=== PATIENT | female | born 1965 | race Two or more races ===

== ENCOUNTER → 2024-10-27 | Outpatient (CLI) | payer MEDICAID, SELFPAY ==
--- NOTE | 2024-10-27 10:15 | XR_ITS ---
Examination: Abdomen sonogram, complete Date and time of exam: October 27, 2024 1017 hours INDICATIONS: Heartburn acid reflux beginning one year ago. Technique: Multiple real-time grayscale transabdominal sonographic images of the abdomen have been obtained. Findings: Multiple gallstones Gallbladder wall 0.3 cm no edema Common bile duct 0.3 cm Pancreatic head 2.6 cm Aorta not enlarged Liver 19.7 cm fatty infiltration no focal liver lesions Normal hepatopedal portal venous flow Patent IVC Right kidney 12.6 x 4.8 x 5.2 cm cortex 1.8 cm Left kidney 12.5 x 4.3 x 5.1 cm cortex 2.0 cm Mild bilateral renal parenchymal scar formation. Midpole echogenic mass left kidney which may represent an angiomyolipoma, 11 x 12 x 12 mm Splenomegaly 13.3 cm IMPRESSION: Cholelithiasis, negative for cholecystitis Moderate hepatomegaly fatty liver Recommend CT scan abdomen kidneys follow-up pre and postcontrast to confirm 11 x 12 x 12 mm angiomyolipoma left kidney
== END | disposition home or self-care (01) ==
PROVIDERS: PCP Physician Assistant; Referring Provider Internal Medicine Gastroenterology; Visit Provider Internal Medicine Gastroenterology
DX: K80.20 Calculus of gallbladder without cholecystitis without obstruction (principal); K76.0 Fatty (change of) liver, not elsewhere classified; D17.71 Benign lipomatous neoplasm of kidney
CPT/HCPCS: 76700

== ENCOUNTER → 2025-01-22 | Outpatient (CLI) | payer MEDICAID, SELFPAY ==
--- NOTE | 2025-01-22 15:30 | XR_ITS ---
Examination: Breast ultrasound, unilateral, right complete Date and time of exam: January 22, 2025 1532 hrs. Indications: Personal history right breast cancer lumpectomy 11 years ago, right breast sonogram July 11, 2024 2:00 nodule 6 x 5 mm Technique: Real-time smith scale ultrasonographic imaging performed right breast including all 4 quadrants as well as nipple retroareolar and axillary region. Findings: 1:00 nodule circumscribed 7 x 8 mm Retroareolar nodule versus scar tissue 13 x 13 mm Impression: BI-RADS Category 3: Probably benign findings One additional 6 month right breast sonogram follow-up is needed to document stability of nodules described above, particularly nodule versus scar tissue in the retroareolar region right breast, 13 x 13 x 13 mm
== END | disposition home or self-care (01) ==
LOC: CDIM 15:15
PROVIDERS: PCP Nurse Practitioner Family; Referring Provider Nurse Practitioner Family; Visit Provider Nurse Practitioner Family
DX: R92.8 Other abnormal and inconclusive findings on diagnostic imaging of breast (principal); Z85.3 Personal history of malignant neoplasm of breast
CPT/HCPCS: 76641

== ENCOUNTER → 2025-02-01 | Outpatient (CLI) | payer MEDICAID, SELFPAY ==
--- NOTE | 2025-02-01 15:30 | XR_ITS ---
Examination: Ultrasound soft tissue extremity right foot TECHNIQUE: Grayscale sonographic images soft tissue right foot Exam date and time: February 01, 2025 1451 hours INDICATIONS: Palpable lump anterior medial right foot note is beginning 2 months ago FINDINGS: Cystlike area at the area concern medial foot 4 x 2 x 6 mm IMPRESSION: Small cyst in the soft tissue at the area concern 4 x 2 x 6 mm
== END | disposition home or self-care (01) ==
PROVIDERS: PCP Physician Assistant; Referring Provider Physician Assistant Medical; Visit Provider Physician Assistant Medical
DX: L72.9 Follicular cyst of the skin and subcutaneous tissue, unspecified (principal)
CPT/HCPCS: 76882

== ENCOUNTER → 2025-02-01 | Outpatient (CLI) | payer MEDICAID, SELFPAY ==
--- NOTE | 2025-02-01 14:00 | ECHO_ITS ---
Transthoracic Echo Report Ht (in): 64 Wt (lb): 149 Exam Location: Portable Status: Preadmit Scale Adjuster: SHELLY Sierra^^^^ Indications: Procedure Performed: BP: / HR: Rhythm: Sinus Technical Quality: Good MEASUREMENTS (Male / Female) Normal Values 2D ECHO LV Diastolic Diameter PLAX 4.3 cm 4.2 - 5.9 / 3.9 - 5.3 cm LV Systolic Diameter PLAX 2.8 cm IVS Diastolic Thickness 0.9 cm 0.6 - 1.0 / 0.6 - 0.9 cm LVPW Diastolic Thickness 1.1 cm 0.6 - 1.0 / 0.6 - 0.9 cm LV Relative Wall Thickness 0.5 LVOT Diameter 1.5 cm Aortic Root Diameter 2.8 cm LA Systolic Diameter LX 4.0 cm 3.0 - 4.0 / 2.7 - 3.8 cm LA Volume Index 43.3 cm?/m? 16 - 28 cm?/m? Ascending Aorta Diameter 2.9 cm DOPPLER AV Peak Velocity 183.5 cm/s AV Peak Gradient 13.5 mmHg AV Mean Gradient 7.0 mmHg AV Velocity Time Integral 42.6 cm LVOT Peak Velocity 125.0 cm/s LVOT Peak Gradient 6.3 mmHg LVOT Velocity Time Integral 27.0 cm AV Area Cont Eq vti 1.1 cm? AV Area Cont Eq pk 1.2 cm? MV Peak Velocity 109.0 cm/s MV Peak Gradient 4.8 mmHg MV Mean Velocity 78.3 cm/s MV Mean Gradient 3.0 mmHg MV Area PHT 4.6 cm? Mitral E Point Velocity 87.3 cm/s Mitral A Point Velocity 108.0 cm/s Mitral E to A Ratio 0.8 LV E' Lateral Velocity 8.4 cm/s Mitral E to LV E' Lateral Ratio 10.4 LV E' Septal Velocity 8.6 cm/s Mitral E to LV E' Septal Ratio 10.2 TR Peak Velocity 258.0 cm/s TR Peak Gradient 26.6 mmHg PV Peak Velocity 108.0 cm/s PV Peak Gradient 4.7 mmHg RVOT Peak Velocity 68.0 cm/s FINDINGS Left Ventricle Normal left ventricular size, wall thickness, systolic function with no obvious regional wall motion abnormalities. There is grade I diastolic dysfunction of the left ventricle (impaired relaxation pattern). The left ventricular ejection fraction is normal, estimated at 60-65%. Right Ventricle The right ventricle is normal in size and systolic function. The estimated right ventricular systolic pressure, 31 mmHg. Left Atrium Mildly increased left atrial volume 43.3 mL/m?. Right Atrium The right atrium is normal by two-dimensional imaging, color flow and Doppler imaging with no structural abnormalities, no thrombus formation present. Atrial Septum The interatrial septum appears normal with no evidence of a shunt. Aorta The aorta is normal by two-dimensional, color flow and Doppler interrogation. Mitral Valve Mild mitral regurgitation. Mild mitral annular calcification. Aortic Valve Aortic valve sclerosis. Tricuspid Valve There is mild tricuspid valve regurgitation. Pulmonic Valve Trivial pulmonic valve regurgitation. Vessels The pulmonary artery appears normal. The inferior vena cava pulmonary and hepatic veins appear normal. Pericardium The pericardium is normal by two-dimensional imaging. There is no significant pericardial effusion. CONCLUSIONS indication: cancer center The transthoracic study is normal by two-dimensional, color flow imaging and Doppler interrogation. Normal left ventricular size and function. Approximate ejection fraction is 65%. Trace mitral and trace tricuspid regurgitation Madison Velez (Electronically Signed) Final Date: 02 Feb 2025 06:38
== END | disposition home or self-care (01) ==
LOC: SDIM 02-02 08:17
PROVIDERS: PCP Physician Assistant Medical; Referring Provider Physician Assistant Medical; Visit Provider Physician Assistant Medical
DX: I08.1 Rheumatic disorders of both mitral and tricuspid valves (principal)
CPT/HCPCS: 93306

== ENCOUNTER 2025-02-19 10:32 | Outpatient (RCR) | payer MEDICAID, SELFPAY ==
--- NOTE | 2025-02-22 14:17 | CTCFLWUP_ITS ---
Patient: PAOLA DUNN : 1965 Page 2 of 2 FOLLOW UP NOTE DATE OF SERVICE: 02/19/2025 NAME: PAOLA DUNN ACCOUNT: [id number] : 1965 AGE: 59 INTERVAL HISTORY: Chief Complaint Follow-up for abnormal ultrasound, high white cell count, anemia History of Present Illness Shaun dejesus presents for follow-up of abnormal ultrasound findings and ongoing anemia. The patient reports taking iron sulfate tablets for anemia as prescribed by their primary care doctor. They experienced a cough about a month or two ago, which resolved after treatment. The patient denies any current infection, recent weight loss, appetite changes, night sweats, or shortness of breath. The patient is currently taking alendronate in the morning, 30 minutes before breakfast. They are scheduled for another endoscopy. The patient has a history of atypical lobular hyperplasia and has undergone extensive anti-endocrine therapy. Medications and Supplements - Iron sulfate tablets - Prescribed by primary care doctor for anemia - Alendronate - Taken in the morning, 30 minutes before breakfast - Can cause gastritis - Herbal or [place] products - Blood pressure medication - Diabetes medication Review of Systems General: Negative for night sweats, weight loss. Respiratory: Positive for cough (resolved after treatment 1-2 months ago). Negative for shortness of breath. ONCOLOGY HISTORY: DIAGNOSIS: History of atypical lobular hyperplasia, atypical ductal hyperplasia of right breast (09/22/2013). Took antihormonal therapy for a total of 8 years stopped on 02/03/2022. Osteopenia DXA 12/01/2023 On Fosamax 70 mg weekly Citracal discontinued by PCP History of iron deficiency anemia, s/p Venofer (12/25/2020) DATE OF DIAGNOSIS: 09/12/2013 STAGE/TNM: Stage 0-no cancer diagnosis- atypical ductal hyperplasia of right breast TREATMENT HISTORY: Care?Plan Start?Date Cycle Day Intent VENOfer?200mg?IV?wkly 08/21/2020 1 70 Palliative Patient received NT endocrine therapy for 8 years stopped in 02/03/2022 HISTORY OF PRESENT ILLNESS: PREVIOUS NOTE: Maryanne Dunn is a 59-year-old Slovak-speaking postmenopausal female with history of right breast mass excision on September 22, 2013. Surgical pathology specimen showed features suggestive of atypical lobular hyperplasia, atypical ductal hyperplasia. 02/07/2014?03/27/2014: She received adjuvant radiation therapy to the right breast After completing the radiation therapy patient started taking tamoxifen which was changed to anastrozole about 3 years ago. 09/08/2018: She complains of new onset pain in the left knee joint that is been bothering her for last 3 weeks. She is having trouble flexing the left knee joint and having trouble putting weight on the left knee. Recently she had mammograms which came back negative. LFTs were normal. 11/07/2018: MRI of the left knee?showed a large horizontal linear tear body and posterior horn medial meniscus as well as subtle heterogeneous enhancement throughout all osseous structures with focal sparing of enhancement in the distal lateral femoral condylar region measuring 30 mm. Radiologist is recommending CT scan of the knee to exclude any lytic lesions in the lateral femoral condylar region. Patient continues to have pain in the left knee. She denies any cough chest pain abdominal pain or leg cramps. 11/24/2018: Patient is in the clinic today for follow-up. She is talking to her primary care doctor regarding possible referral to orthopedic surgeon. She is scheduled to have CT scan of her left knee on December 06, 2018. She is otherwise doing well at this time. She denies any new complaints. 12/06/2018: Patient had CT scan of left knee without contrast which showed focal radiolucent areas in the intercondylar region of left distal femur 20 x 22 mm as well as 2 lesions in the lateral femoral condylar region measuring 17 x 8, 8 x 6 mm. Radiologist is favoring focal osteopenia as most likely possibility and recommending left knee x-rays in about 3 months. 03/20/2019: X-ray of the left knee did not show any findings diagnostic for metastatic disease to the bone. 04/26/2019: Ultrasound of the abdomen?cholelithiasis and mild hepatomegaly. 05/17/2019: Bilateral screening mammograms?BI-RADS Category 2: Benign findings. 05/30/2019: Bone density test?There is osteopenia based on lumbar spine measurements. There is osteopenia based on hip measurements 06/26/2020: Hemoglobin 10.2, MCV 91, WBC 7.4, platelets 260,000, creatinine 0.54. 10/10/2020: Bilateral breast MRI with gadolinium? 08/12/2021: Bone density test? 02/03/2022: Advised patient to stop taking anastrozole. 10/12/2022: Bilateral mammogram screening 11/09/2022: Diagnostic mammogram right breast 11/09/2022: Breast ultrasound complete bilateral 05/04/2023: Bilateral breast ultrasound complete 05/04/2023: Right breast unilateral diagnostic mammogram 08/04/2023: Hemoglobin 11.0, MCV 90, platelets 291,000, ANC 6.0, WBC 9.5 06/08/2023: EGD, negative for malignancy 11/09/2023: Colonoscopy screening, hemorrhoids, repeat in 10 years 12/01/2023: DEXA 12/10/2023: Right breast ultrasound Findings: 1:00 oval mass circumscribed 8 x 3 x 6 mm Impression: BI-RADS Category 2: Benign findings 12/10/2023 : Right breast diagnostic mammogram Findings: There are scattered areas of fibroglandular density. 10 mm focal asymmetry lower right breast on MLO view appears stable and benign. Otherwise, no evidence of abnormal masses or suspicious calcifications. Stable postbiopsy marker clip. Impression: BI-RADS category 2: Benign findings Recommend 1 year follow-up mammogram 04/03/2024: Bilateral mammogram screening 05/25/2024: Hemoglobin 10.4, MCV 96, ANC 5.7, WBC 8.8, platelets 291,000 07/11/2024: Hemoglobin 11.1, MCV 93, ANC 5.3, WBC 8.4, platelets 286,000 07/11/2024: Right diagnostic mammogram-benign findings. 07/11/2024: Right breast ultrasound-2:00 oval mass circumcised 6 x 5 mm, probably benign findings, 1 additional 6-month right breast ultrasound to document stability of nodule. OTHER MEDICAL HISTORY/CONDITIONS: FAMILY HISTORY: SOCIAL HISTORY: [employer] HISTORY: MEDICATIONS: 1. alendronate - 70 mg 1 tab Weekly Medications Last Reconciled by Rashida Liriano MA on 02/19/2025 ALLERGIES: No Known Drug Allergies REVIEW OF SYSTEMS: A complete 14-point review of systems was performed and is negative except as noted in interval history. PHYSICAL EXAMINATION: VITAL SIGNS: PAIN: 0 - No pain ECOG Performance Status: 0 - Asymptomatic and fully active GENERAL APPEARANCE: Appears well, in no apparent distress, appropriately interactive. HEENT: Normocephalic, no temporal wasting, normal conjunctiva, no scleral icterus, normal hearing, lips without lesions, neck normal range of motion. CARDIOVASCULAR: Not assessed. PULMONARY: Normal respiratory effort, no respiratory distress or use of accessory muscles, speaking in full sentences, no tachypnea. EXTREMITIES: No pedal edema or cyanosis. SKIN: Normal skin appearance. NEUROLOGIC: Alert and oriented x4. PSHYCHIATRIC: Appropriate affect, mood normal, behavior normal, intact thought and speech. LABORATORY DATA: I have personally reviewed and interpreted each of the patient?s relevant lab tests, abnormal findings are below: Date 01/27/16 08/21/20 ??WHITE?BLOOD?COUNT?(Thou/mm3) 8.7 9.7 ??RED?BLOOD?COUNT?(Miln/mm3) 3.28?L 3.72?L ??HEMOGLOBIN?(gm/dl) 10.2?L 11.3?L ??HEMATOCRIT?(%) 29.6?L 31.6?L ??PLATELET?COUNT?(Thou/mm3) 261 294 ??NEUTROPHILS?%,?AUTO?(%) 63 71 ??LYMPH?%,?AUTO?(%) 27 22 ??NEUTROPHILS,?AUTO?(Thou/mm3) 5.5 6.9 ??GLUCOSE,RANDOM?(mg/dL) 110?H ? ??BLOOD?UREA?NITROGEN?(mg/dL) 13 ? ??CREATININE?(mg/dL) 0.70 ? ??SODIUM?(mmol/L) 143 ? ??POTASSIUM?(mmol/L) 3.5 ? ??CHLORIDE?(mmol/L) 105 ? ??CrCl?(CandG)?(ml/min) 112.91 ? ??AST/SGOT?(Unit/L) 15 ? ??ALT/SGPT?(Unit/L) 24 ? ??ALKALINE?PHOSPHATASE?(Unit/L) 56 ? ??BILIRUBIN,?TOTAL?(mg/dL) 0.9 ? ??PROTEIN?TOTAL?(gm/dl) 6.7 ? ??ALBUMIN,?SERUM?(gm/dl) 3.5 ? ??GLOBULIN?(gm/dl) 3.2 ? ??ALBUMIN/GLOBULIN?RATIO 1.1?L ? ??CALCIUM,?SERUM?(mg/dL) 8.1?L ? ??CALCIUM?SERUM?(CORRECTED)?(mg/dL) 8.5 ? ??TOTAL?IRON?BINDING?CAP?(S*)?(mcg/dL) ? 282 ??UNBOUND?IBC?(mcg/dL) ? 220?L Laboratory, Imaging, and Diagnostic Test Results - Date: Not specified - WBC: Elevated (specific value not provided) - Hemoglobin: Low, indicating anemia (specific value not provided) - Ferritin: 591 (units not specified, high) - Liver enzymes: Slightly elevated (specific values not provided) - Ultrasound (January, year not specified): Showed scar tissue in breast, radiologist recommends repeat - Previous results: - EGD: Performed previously (date not specified), results not provided ASSESSMENT/PLAN: Shaun dejesus presents with abnormal ultrasound findings, elevated white blood cell count, persistent anemia, and slightly elevated liver enzymes. Abnormal breast ultrasound Assessment: Recent ultrasound from January revealed scar tissue in the breast. Patient has a history of atypical lobular hyperplasia and has undergone extensive anti-endocrine therapy. The radiologist has recommended a repeat ultrasound. Plan: - Schedule mammogram for July Leukocytosis and anemia Assessment: Patient presents with elevated white blood cell count and persistent anemia. Iron supplementation has been ongoing as prescribed by the primary care physician. Recent ferritin level is significantly elevated at 591, suggesting anemia is not due to iron deficiency. Patient reports a cough about a month or two ago that resolved with treatment. No recent weight loss, appetite changes, night sweats, or shortness of breath reported. Considering the possibility of an underlying infection or other etiologies for the hematologic abnormalities. Plan: - Discontinue iron sulfate tablets immediately - Order blood work for - Investigate cause of anemia - Consider testing for valley fever Elevated liver enzymes Assessment: Patient's liver enzymes are slightly elevated. High ferritin levels (591) may be contributing to potential liver damage. Further investigation is warranted to determine the underlying cause. Plan: - Order MRI of the liver - Check for hepatitis and other liver conditions - Discontinue all supplements, including herbal and [place] products - Continue only essential medications (e.g., for blood pressure or diabetes) Potential medication-induced gastritis Assessment: Patient is currently taking alendronate in the morning, 30 minutes before breakfast. This medication regimen may be contributing to gastritis. Patient is scheduled for another endoscopy. Plan: - Discontinue alendronate until further notice - Await results of scheduled endoscopy - will start on [place] after dental clearance ORDERS: Order # Description [id number] Comprehensive Metabolic Panel - 12 + CBC with Auto Diff + Hep A, B and C panel [id number] Ferritin + Iron Panel + Reticulocyte Count + Sedimentation Rate + Vitamin B-12 + Folic Acid; Serum [id number] Assay Of Haptoglobin Quant [id number] Lactate Dehydrogenase (LDH) [id number] Serum Immunofixation Electrophoresis + Serum Protein Electrophoresis + Beta-2 Microglobulin + Quant Immunoglobulins + Free kappa and lambda light chains plus ratio, quantitative + Urine Protien Electrophoresis + Urine Immunification Electrophoresis + Serum Viscocity + Hemoglobin Electrophoresis [id number] Antibody; Coccidioides Immitis + HIV-1/HIV-2 Single Assay [id number] QuantiFERON-TB Gold Plus (angelcam TEST:[id number] CPT: 77834) [id number] Erythropoieten Level [id number] MD Follow Up 3 Week [id number] RETURN TO CLINIC: BILLING AND COMPLIANCE: I reviewed external records from providers outside my specialty as summarized above. I spent a total of 50 minutes on this patient?s care on the day of their visit excluding time spent related to any billed procedures. This time includes time spent with the patient as well as time spent documenting in the medical record, reviewing patients records and tests, obtaining history, placing orders, communicating with other healthcare professionals, counseling the patient, family or caregiver, and/or care coordination for the diagnoses above. Electronically Signed by: Luigi Lang MD T: 11:35 AM CC: CALOS Anand PCP: Luigi Lang Referring: Luigi Lang This document was completed utilizing speech recognition software. Grammatical errors, random word insertions, pronoun errors, and incomplete sentences are an occasional consequence of this system due to software limitations, ambient noise, and hardware issues. Any formal questions or concerns about the content, text or information contained within the body of this dictation should be directly addressed to the provider for clarification.
== END 2025-03-03 23:59 | disposition home or self-care (01) ==
LOC: SCTC 10:32
PROVIDERS: PCP Physician Assistant; Referring Provider Internal Medicine Hematology & Oncology; Visit Provider Internal Medicine Hematology & Oncology
DX: D64.9 Anemia, unspecified (principal); R92.8 Other abnormal and inconclusive findings on diagnostic imaging of breast; D72.829 Elevated white blood cell count, unspecified; R74.8 Abnormal levels of other serum enzymes
CPT/HCPCS: 99213; G0463

== ENCOUNTER 2025-04-23 13:52 | Outpatient (RCR) | payer MEDICAID, SELFPAY ==
--- NOTE | 2025-04-23 16:10 | CTCFLWUP_ITS ---
Patient: PAOLA DUNN : 1965 Page 2 of 2 FOLLOW UP NOTE DATE OF SERVICE: 04/23/2025 NAME: PAOLA DUNN ACCOUNT: [id number] : 1965 AGE: 60 INTERVAL HISTORY: Chief Complaint Follow-up for abnormal ultrasound, high white cell count, anemia History of Present Illness Shaun dejesus presents for follow-up of abnormal ultrasound findings and ongoing anemia. The patient reports taking iron sulfate tablets for anemia as prescribed by their primary care doctor. They experienced a cough about a month or two ago, which resolved after treatment. The patient denies any current infection, recent weight loss, appetite changes, night sweats, or shortness of breath. The patient is currently taking alendronate in the morning, 30 minutes before breakfast. They are scheduled for another endoscopy. The patient has a history of atypical lobular hyperplasia and has undergone extensive anti-endocrine therapy. Medications and Supplements - Iron sulfate tablets - Prescribed by primary care doctor for anemia - Alendronate - Taken in the morning, 30 minutes before breakfast - Can cause gastritis - Herbal or Israeli products - Blood pressure medication - Diabetes medication Review of Systems General: Negative for night sweats, weight loss. Respiratory: Positive for cough (resolved after treatment 1-2 months ago). Negative for shortness of breath. ONCOLOGY HISTORY: DIAGNOSIS: History of atypical lobular hyperplasia, atypical ductal hyperplasia of right breast (09/22/2013). Took antihormonal therapy for a total of 8 years stopped on 02/03/2022. Osteopenia DXA 12/01/2023 On Fosamax 70 mg weekly Citracal discontinued by PCP History of iron deficiency anemia, s/p Venofer (12/25/2020) DATE OF DIAGNOSIS: 09/12/2013 STAGE/TNM: Stage 0-no cancer diagnosis- atypical ductal hyperplasia of right breast TREATMENT HISTORY: Care?Plan Start?Date Cycle Day Intent VENOfer?200mg?IV?wkly 08/21/2020 1 70 Palliative HISTORY OF PRESENT ILLNESS: PREVIOUS NOTE: Maryanne Dunn is a 60-year-old Maltese-speaking postmenopausal female with history of right breast mass excision on September 22, 2013. Surgical pathology specimen showed features suggestive of atypical lobular hyperplasia, atypical ductal hyperplasia. 02/07/2014?03/27/2014: She received adjuvant radiation therapy to the right breast After completing the radiation therapy patient started taking tamoxifen which was changed to anastrozole about 3 years ago. 09/08/2018: She complains of new onset pain in the left knee joint that is been bothering her for last 3 weeks. She is having trouble flexing the left knee joint and having trouble putting weight on the left knee. Recently she had mammograms which came back negative. LFTs were normal. 11/07/2018: MRI of the left knee?showed a large horizontal linear tear body and posterior horn medial meniscus as well as subtle heterogeneous enhancement throughout all osseous structures with focal sparing of enhancement in the distal lateral femoral condylar region measuring 30 mm. Radiologist is recommending CT scan of the knee to exclude any lytic lesions in the lateral femoral condylar region. Patient continues to have pain in the left knee. She denies any cough chest pain abdominal pain or leg cramps. 11/24/2018: Patient is in the clinic today for follow-up. She is talking to her primary care doctor regarding possible referral to orthopedic surgeon. She is scheduled to have CT scan of her left knee on December 06, 2018. She is otherwise doing well at this time. She denies any new complaints. 12/06/2018: Patient had CT scan of left knee without contrast which showed focal radiolucent areas in the intercondylar region of left distal femur 20 x 22 mm as well as 2 lesions in the lateral femoral condylar region measuring 17 x 8, 8 x 6 mm. Radiologist is favoring focal osteopenia as most likely possibility and recommending left knee x-rays in about 3 months. 03/20/2019: X-ray of the left knee did not show any findings diagnostic for metastatic disease to the bone. 04/26/2019: Ultrasound of the abdomen?cholelithiasis and mild hepatomegaly. 05/17/2019: Bilateral screening mammograms?BI-RADS Category 2: Benign findings. 05/30/2019: Bone density test?There is osteopenia based on lumbar spine measurements. There is osteopenia based on hip measurements 06/26/2020: Hemoglobin 10.2, MCV 91, WBC 7.4, platelets 260,000, creatinine 0.54. 10/10/2020: Bilateral breast MRI with gadolinium? 08/12/2021: Bone density test? 02/03/2022: Advised patient to stop taking anastrozole. 10/12/2022: Bilateral mammogram screening 11/09/2022: Diagnostic mammogram right breast 11/09/2022: Breast ultrasound complete bilateral 05/04/2023: Bilateral breast ultrasound complete 05/04/2023: Right breast unilateral diagnostic mammogram 08/04/2023: Hemoglobin 11.0, MCV 90, platelets 291,000, ANC 6.0, WBC 9.5 06/08/2023: EGD, negative for malignancy 11/09/2023: Colonoscopy screening, hemorrhoids, repeat in 10 years 12/01/2023: DEXA 12/10/2023: Right breast ultrasound Findings: 1:00 oval mass circumscribed 8 x 3 x 6 mm Impression: BI-RADS Category 2: Benign findings 12/10/2023 : Right breast diagnostic mammogram Findings: There are scattered areas of fibroglandular density. 10 mm focal asymmetry lower right breast on MLO view appears stable and benign. Otherwise, no evidence of abnormal masses or suspicious calcifications. Stable postbiopsy marker clip. Impression: BI-RADS category 2: Benign findings Recommend 1 year follow-up mammogram 04/03/2024: Bilateral mammogram screening 05/25/2024: Hemoglobin 10.4, MCV 96, ANC 5.7, WBC 8.8, platelets 291,000 07/11/2024: Hemoglobin 11.1, MCV 93, ANC 5.3, WBC 8.4, platelets 286,000 07/11/2024: Right diagnostic mammogram-benign findings. 07/11/2024: Right breast ultrasound-2:00 oval mass circumcised 6 x 5 mm, probably benign findings, 1 additional 6-month right breast ultrasound to document stability of nodule. OTHER MEDICAL HISTORY/CONDITIONS: FAMILY HISTORY: SOCIAL HISTORY: BI TECHNICAL LEAD HISTORY: Vaginal?Bleeding:?0-None MEDICATIONS: 1. alendronate - 70 mg 1 tab Weekly Medications Last Reconciled by Maryanne Ortega MD on 04/23/2025 ALLERGIES: No Known Drug Allergies REVIEW OF SYSTEMS: A complete 14-point review of systems was performed and is negative except as noted in interval history. PHYSICAL EXAMINATION: VITAL SIGNS: Temperature?97.5, B/P?102/60, Oxygen?Saturation?95% Weight?153?lbs PAIN: 0 - No pain GENERAL APPEARANCE: Appears well, in no apparent distress, appropriately interactive. HEENT: Normocephalic, no temporal wasting, normal conjunctiva, no scleral icterus, normal hearing, lips without lesions, neck normal range of motion. CARDIOVASCULAR: Not assessed. PULMONARY: Normal respiratory effort, no respiratory distress or use of accessory muscles, speaking in full sentences, no tachypnea. EXTREMITIES: No pedal edema or cyanosis. SKIN: Normal skin appearance. NEUROLOGIC: Alert and oriented x4. PSHYCHIATRIC: Appropriate affect, mood normal, behavior normal, intact thought and speech. LABORATORY DATA: I have personally reviewed and interpreted each of the patient?s relevant lab tests, abnormal findings are below: Date 01/27/16 08/21/20 ??WHITE?BLOOD?COUNT?(Thou/mm3) 8.7 9.7 ??RED?BLOOD?COUNT?(Miln/mm3) 3.28?L 3.72?L ??HEMOGLOBIN?(gm/dl) 10.2?L 11.3?L ??HEMATOCRIT?(%) 29.6?L 31.6?L ??PLATELET?COUNT?(Thou/mm3) 261 294 ??NEUTROPHILS?%,?AUTO?(%) 63 71 ??LYMPH?%,?AUTO?(%) 27 22 ??NEUTROPHILS,?AUTO?(Thou/mm3) 5.5 6.9 ??GLUCOSE,RANDOM?(mg/dL) 110?H ? ??BLOOD?UREA?NITROGEN?(mg/dL) 13 ? ??CREATININE?(mg/dL) 0.70 ? ??SODIUM?(mmol/L) 143 ? ??POTASSIUM?(mmol/L) 3.5 ? ??CHLORIDE?(mmol/L) 105 ? ??CrCl?(CandG)?(ml/min) 112.91 ? ??AST/SGOT?(Unit/L) 15 ? ??ALT/SGPT?(Unit/L) 24 ? ??ALKALINE?PHOSPHATASE?(Unit/L) 56 ? ??BILIRUBIN,?TOTAL?(mg/dL) 0.9 ? ??PROTEIN?TOTAL?(gm/dl) 6.7 ? ??ALBUMIN,?SERUM?(gm/dl) 3.5 ? ??GLOBULIN?(gm/dl) 3.2 ? ??ALBUMIN/GLOBULIN?RATIO 1.1?L ? ??CALCIUM,?SERUM?(mg/dL) 8.1?L ? ??CALCIUM?SERUM?(CORRECTED)?(mg/dL) 8.5 ? ??TOTAL?IRON?BINDING?CAP?(S*)?(mcg/dL) ? 282 ??UNBOUND?IBC?(mcg/dL) ? 220?L ASSESSMENT/PLAN: Shaun dejesus presents with abnormal ultrasound findings, elevated white blood cell count, persistent anemia, and slightly elevated liver enzymes. Abnormal breast ultrasound Assessment: Recent ultrasound from January revealed scar tissue in the breast. Patient has a history of atypical lobular hyperplasia and has undergone extensive anti-endocrine therapy. The radiologist has recommended a repeat ultrasound. Plan: - Schedule mammogram for July Leukocytosis and anemia Assessment: Patient presents with elevated white blood cell count and persistent anemia. Iron supplementation has been ongoing as prescribed by the primary care physician. Recent ferritin level is significantly elevated at 591, suggesting anemia is not due to iron deficiency. Patient reports a cough about a month or two ago that resolved with treatment. No recent weight loss, appetite changes, night sweats, or shortness of breath reported. Considering the possibility of an underlying infection or other etiologies for the hematologic abnormalities. Plan: - Discontinue iron sulfate tablets immediately - Order blood work for - Investigate cause of anemia - Consider testing for valley fever Elevated liver enzymes Assessment: Patient's liver enzymes are slightly elevated. High ferritin levels (591) may be contributing to potential liver damage. Further investigation is warranted to determine the underlying cause. Plan: - Order MRI of the liver - Check for hepatitis and other liver conditions - Discontinue all supplements, including herbal and Israeli products - Continue only essential medications (e.g., for blood pressure or diabetes) Potential medication-induced gastritis Assessment: Patient is currently taking alendronate in the morning, 30 minutes before breakfast. This medication regimen may be contributing to gastritis. Patient is scheduled for another endoscopy. Plan: - Discontinue alendronate until further notice - Await results of scheduled endoscopy - will start on Zometa after dental clearance RETURN TO CLINIC: I reviewed the diagnosis, prognosis, and recommended treatment/procedure options with the patient (and/or their legal applications sales representative), including the potential benefits, risks, side effects and alternative therapies. We also discussed the option of no treatment and the possibility of clinical trial participation, if applicable. All questions were addressed, and they demonstrated understanding. They provided informed consent to proceed with the proposed plan of care. BILLING AND COMPLIANCE: I reviewed external records from providers outside my specialty as summarized above. I spent a total of 50 minutes on this patient?s care on the day of their visit excluding time spent related to any billed procedures. This time includes time spent with the patient as well as time spent documenting in the medical record, reviewing patients records and tests, obtaining history, placing orders, communicating with other healthcare professionals, counseling the patient, family or caregiver, and/or care coordination for the diagnoses above. Electronically Signed by: Luigi Lang MD T: 4:08 PM CC: CALOS Anand PCP: Luigi Lang Referring: Luigi Lang This document was completed utilizing speech recognition software. Grammatical errors, random word insertions, pronoun errors, and incomplete sentences are an occasional consequence of this system due to software limitations, ambient noise, and hardware issues. Any formal questions or concerns about the content, text or information contained within the body of this dictation should be directly addressed to the provider for clarification.
== END 2025-05-03 23:59 | disposition home or self-care (01) ==
LOC: SCTC 13:52
PROVIDERS: PCP Physician Assistant; Referring Provider Internal Medicine Hematology & Oncology; Visit Provider Internal Medicine Hematology & Oncology
DX: D64.9 Anemia, unspecified (principal); D72.829 Elevated white blood cell count, unspecified; R92.8 Other abnormal and inconclusive findings on diagnostic imaging of breast; R74.8 Abnormal levels of other serum enzymes; K29.70 Gastritis, unspecified, without bleeding; T45.8X5D Adverse effect of other primarily systemic and hematological agents, subsequent encounter
CPT/HCPCS: 99212; G0463

== ENCOUNTER 2025-06-25 14:57 | Outpatient (RCR) | payer MEDICAID, SELFPAY ==
--- NOTE | 2025-07-01 23:27 | CTCFLWUP_ITS ---
Patient: PAOLA DUNN : 1965 Page 5 of 8 FOLLOW UP NOTE DATE OF SERVICE: 06/25/2025 NAME: PAOLA DUNN ACCOUNT: [id number] : 1965 AGE: 60 INTERVAL HISTORY: Chief Complaint Follow-up for abnormal ultrasound, high white cell count, anemia History of Present Illness Shaun dejesus presents for follow-up of abnormal ultrasound findings and ongoing anemia. The patient reports taking iron sulfate tablets for anemia as prescribed by their primary care doctor. They experienced a cough about a month or two ago, which resolved after treatment. The patient denies any current infection, recent weight loss, appetite changes, night sweats, or shortness of breath. The patient is currently taking alendronate in the morning, 30 minutes before breakfast. They are scheduled for another endoscopy. The patient has a history of atypical lobular hyperplasia and has undergone extensive anti-endocrine therapy. Medications and Supplements - Iron sulfate tablets - Prescribed by primary care doctor for anemia - Alendronate - Taken in the morning, 30 minutes before breakfast - Can cause gastritis - Herbal or [place]alander products - Blood pressure medication - Diabetes medication Review of Systems General: Negative for night sweats, weight loss. Respiratory: Positive for cough (resolved after treatment 1-2 months ago). Negative for shortness of breath. ONCOLOGY HISTORY:?[facility] Oncology Hx? DIAGNOSIS: History of atypical lobular hyperplasia, atypical ductal hyperplasia of right breast (09/22/2013). Took antihormonal therapy for a total of 8 years stopped on 02/03/2022. Osteopenia DXA 12/01/2023 On Fosamax 70 mg weekly Citracal discontinued by PCP History of iron deficiency anemia, s/p Venofer (12/25/2020) DATE OF DIAGNOSIS: 09/12/2013 STAGE/TNM: Stage 0-no cancer diagnosis- atypical ductal hyperplasia of right breast TREATMENT HISTORY: Care?Plan Start?Date Cycle Day Intent VENOfer?200mg?IV?wkly 08/21/2020 1 70 Palliative Zoledronic?Acid?4?mg?adjuvant 04/23/2025 1 180 Maintenance HISTORY OF PRESENT ILLNESS: PREVIOUS NOTE: Maryanne Dunn is a 60-year-old Tajik-speaking postmenopausal female with history of right breast mass excision on September 22, 2013. Surgical pathology specimen showed features suggestive of atypical lobular hyperplasia, atypical ductal hyperplasia. 02/07/2014?03/27/2014: She received adjuvant radiation therapy to the right breast After completing the radiation therapy patient started taking tamoxifen which was changed to anastrozole about 3 years ago. 09/08/2018: She complains of new onset pain in the left knee joint that is been bothering her for last 3 weeks. She is having trouble flexing the left knee joint and having trouble putting weight on the left knee. Recently she had mammograms which came back negative. LFTs were normal. 11/07/2018: MRI of the left knee?showed a large horizontal linear tear body and posterior horn medial meniscus as well as subtle heterogeneous enhancement throughout all osseous structures with focal sparing of enhancement in the distal lateral femoral condylar region measuring 30 mm. Radiologist is recommending CT scan of the knee to exclude any lytic lesions in the lateral femoral condylar region. Patient continues to have pain in the left knee. She denies any cough chest pain abdominal pain or leg cramps. 11/24/2018: Patient is in the clinic today for follow-up. She is talking to her primary care doctor regarding possible referral to orthopedic surgeon. She is scheduled to have CT scan of her left knee on December 06, 2018. She is otherwise doing well at this time. She denies any new complaints. 12/06/2018: Patient had CT scan of left knee without contrast which showed focal radiolucent areas in the intercondylar region of left distal femur 20 x 22 mm as well as 2 lesions in the lateral femoral condylar region measuring 17 x 8, 8 x 6 mm. Radiologist is favoring focal osteopenia as most likely possibility and recommending left knee x-rays in about 3 months. 03/20/2019: X-ray of the left knee did not show any findings diagnostic for metastatic disease to the bone. 04/26/2019: Ultrasound of the abdomen?cholelithiasis and mild hepatomegaly. 05/17/2019: Bilateral screening mammograms?BI-RADS Category 2: Benign findings. 05/30/2019: Bone density test?There is osteopenia based on lumbar spine measurements. There is osteopenia based on hip measurements 06/26/2020: Hemoglobin 10.2, MCV 91, WBC 7.4, platelets 260,000, creatinine 0.54. 10/10/2020: Bilateral breast MRI with gadolinium? 08/12/2021: Bone density test? 02/03/2022: Advised patient to stop taking anastrozole. 10/12/2022: Bilateral mammogram screening 11/09/2022: Diagnostic mammogram right breast 11/09/2022: Breast ultrasound complete bilateral 05/04/2023: Bilateral breast ultrasound complete 05/04/2023: Right breast unilateral diagnostic mammogram 08/04/2023: Hemoglobin 11.0, MCV 90, platelets 291,000, ANC 6.0, WBC 9.5 06/08/2023: EGD, negative for malignancy 11/09/2023: Colonoscopy screening, hemorrhoids, repeat in 10 years 12/01/2023: DEXA 12/10/2023: Right breast ultrasound Findings: 1:00 oval mass circumscribed 8 x 3 x 6 mm Impression: BI-RADS Category 2: Benign findings 12/10/2023 : Right breast diagnostic mammogram Findings: There are scattered areas of fibroglandular density. 10 mm focal asymmetry lower right breast on MLO view appears stable and benign. Otherwise, no evidence of abnormal masses or suspicious calcifications. Stable postbiopsy marker clip. Impression: BI-RADS category 2: Benign findings Recommend 1 year follow-up mammogram 04/03/2024: Bilateral mammogram screening 05/25/2024: Hemoglobin 10.4, MCV 96, ANC 5.7, WBC 8.8, platelets 291,000 07/11/2024: Hemoglobin 11.1, MCV 93, ANC 5.3, WBC 8.4, platelets 286,000 07/11/2024: Right diagnostic mammogram-benign findings. 07/11/2024: Right breast ultrasound-2:00 oval mass circumcised 6 x 5 mm, probably benign findings, 1 additional 6-month right breast ultrasound to document stability of nodule. OTHER MEDICAL HISTORY/CONDITIONS: FAMILY HISTORY: ?Clone Family Hx? 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 B12 - 5,000-100 mcg 1 Lozenge Daily?Palabra Meds? Medications Last Reconciled by Maryanne Ortega MD on 06/25/2025 ALLERGIES: No Known Drug Allergies REVIEW OF SYSTEMS: A complete 14-point review of systems was performed and is negative except as noted in interval history. PHYSICAL EXAMINATION:?CloneBlock PE? VITAL SIGNS: Temperature?97.5, B/P?111/67, Oxygen?Saturation?96% Weight?155?lbs PAIN: 0 - No pain ECOG Performance Status: 0 - Asymptomatic and fully active GENERAL APPEARANCE: Appears well, in no apparent distress, appropriately interactive. HEENT: Normocephalic, no temporal wasting, normal conjunctiva, no scleral icterus, normal hearing, lips without lesions, neck normal range of motion. CARDIOVASCULAR: Not assessed. PULMONARY: Normal respiratory effort, no respiratory distress or use of accessory muscles, speaking in full sentences, no tachypnea. EXTREMITIES: No pedal edema or cyanosis. SKIN: Normal skin appearance. NEUROLOGIC: Alert and oriented x4. PSHYCHIATRIC: Appropriate affect, mood normal, behavior normal, intact thought and speech. LABORATORY DATA: I have personally reviewed and interpreted each of the patient?s relevant lab tests, abnormal findings are below: Date 01/27/16 08/21/20 ??WHITE?BLOOD?COUNT?(Thou/mm3) 8.7 9.7 ??RED?BLOOD?COUNT?(Miln/mm3) 3.28?L 3.72?L ??HEMOGLOBIN?(gm/dl) 10.2?L 11.3?L ??HEMATOCRIT?(%) 29.6?L 31.6?L ??PLATELET?COUNT?(Thou/mm3) 261 294 ??NEUTROPHILS?%,?AUTO?(%) 63 71 ??LYMPH?%,?AUTO?(%) 27 22 ??NEUTROPHILS,?AUTO?(Thou/mm3) 5.5 6.9 ??GLUCOSE,RANDOM?(mg/dL) 110?H ? ??BLOOD?UREA?NITROGEN?(mg/dL) 13 ? ??CREATININE?(mg/dL) 0.70 ? ??SODIUM?(mmol/L) 143 ? ??POTASSIUM?(mmol/L) 3.5 ? ??CHLORIDE?(mmol/L) 105 ? ??CrCl?(CandG)?(ml/min) 112.91 ? ??AST/SGOT?(Unit/L) 15 ? ??ALT/SGPT?(Unit/L) 24 ? ??ALKALINE?PHOSPHATASE?(Unit/L) 56 ? ??BILIRUBIN,?TOTAL?(mg/dL) 0.9 ? ??PROTEIN?TOTAL?(gm/dl) 6.7 ? ??ALBUMIN,?SERUM?(gm/dl) 3.5 ? ??GLOBULIN?(gm/dl) 3.2 ? ??ALBUMIN/GLOBULIN?RATIO 1.1?L ? ??CALCIUM,?SERUM?(mg/dL) 8.1?L ? ??CALCIUM?SERUM?(CORRECTED)?(mg/dL) 8.5 ? ??TOTAL?IRON?BINDING?CAP?(S*)?(mcg/dL) ? 282 ??UNBOUND?IBC?(mcg/dL) ? 220?L ASSESSMENT/PLAN:?Eileen Lang Assessment/Plan? Shaun dejesus presents with abnormal ultrasound findings, elevated white blood cell count, persistent anemia, and slightly elevated liver enzymes. Abnormal breast ultrasound Assessment: Recent ultrasound from January revealed scar tissue in the breast. Patient has a history of atypical lobular hyperplasia and has undergone extensive anti-endocrine therapy. The radiologist has recommended a repeat ultrasound. Plan: - Schedule mammogram for July Leukocytosis and anemia Assessment: Patient presents with elevated white blood cell count and persistent anemia. Iron supplementation has been ongoing as prescribed by the primary care physician. Recent ferritin level is significantly elevated at 591, suggesting anemia is not due to iron deficiency. Patient reports a cough about a month or two ago that resolved with treatment. No recent weight loss, appetite changes, night sweats, or shortness of breath reported. Considering the possibility of an underlying infection or other etiologies for the hematologic abnormalities. B12 is low normal Folic acid is 8 normal Iron study shows low iron saturation at 22 and iron parent glassed is normal ferritin is high at 419 Advised patient to take oral B12 Elevated liver enzymes Liver enzymes normalized Assessment: Patient's liver enzymes are slightly elevated. High ferritin levels (591) may be contributing to potential liver damage. Further investigation is warranted to determine the underlying cause. Hepatitis panel negative Liver enzymes normalized Hemoglobin electrophoresis normal Advised not to take any herbal supplements Potential medication-induced gastritis Assessment: Patient is currently taking alendronate in the morning, 30 minutes before breakfast. This medication regimen may be contributing to gastritis. Patient is scheduled for another endoscopy. Plan: - Discontinue alendronate until further notice - Await results of scheduled endoscopy - will start on Zometa after dental clearance ORDERS: Order # Description [id number] Infusion 1 Hour [id number] Infusion 1 Hour [id number] Infusion 1 Hour [id number] Infusion 1 Hour [id number] Infusion 1 Hour RETURN TO CLINIC: I reviewed the diagnosis, prognosis, and recommended treatment/procedure options with the patient (and/or their legal sales representative malt liquors), including the potential benefits, risks, side effects and alternative therapies. We also discussed the option of no treatment and the possibility of clinical trial participation, if applicable. All questions were addressed, and they demonstrated understanding. They provided informed consent to proceed with the proposed plan of care. BILLING AND COMPLIANCE: I reviewed external records from providers outside my specialty as summarized above. I spent a total of 50 minutes on this patient?s care on the day of their visit excluding time spent related to any billed procedures. This time includes time spent with the patient as well as time spent documenting in the medical record, reviewing patients records and tests, obtaining history, placing orders, communicating with other healthcare professionals, counseling the patient, family or caregiver, and/or care coordination for the diagnoses above. Electronically Signed by: Luigi Lang MD T: 11:25 PM CC: Kika,? PCP: Miesha Mtz ([place]) Referring: Miesha Mtz ([place]) This document was completed utilizing speech recognition software. Grammatical errors, random word insertions, pronoun errors, and incomplete sentences are an occasional consequence of this system due to software limitations, ambient noise, and hardware issues. Any formal questions or concerns about the content, text or information contained within the body of this dictation should be directly addressed to the provider for clarification.
== END 2025-07-03 23:59 | disposition home or self-care (01) ==
LOC: SCTC 14:57
PROVIDERS: PCP Physician Assistant; Referring Provider Physician Assistant; Visit Provider Internal Medicine Hematology & Oncology
DX: R92.8 Other abnormal and inconclusive findings on diagnostic imaging of breast (principal); D72.829 Elevated white blood cell count, unspecified; D64.9 Anemia, unspecified; R74.8 Abnormal levels of other serum enzymes
CPT/HCPCS: 99212; G0463

== ENCOUNTER → 2025-08-23 | Outpatient (CLI) | payer MEDICAID, SELFPAY ==
--- NOTE | 2025-08-23 14:00 | XR_ITS ---
Examination: Breast ultrasound, unilateral, right complete Date and time of exam: August 23, 2025, 1411 hours, comparison January 22, 2025 INDICATIONS: Personal history right breast cancer with lumpectomy 11 years ago, scarring retroareolar to 9 o'clock position, family history of breast cancer, ultrasound January 22, 2025 right breast 1:00 nodule 8 x 7 mm retroareolar nodule versus scar tissue 13 x 13 mm Technique: Real-time smith scale ultrasonographic imaging performed right breast including all 4 quadrants as well as nipple retroareolar and axillary region. Findings: 1:00 nodule lobular margins 12 x 9 mm Stable probable scar formation retroareolar 14 x 13 mm IMPRESSION: BI-RADS Category 3: Probably benign findings Enlarging nodule 1 o'clock position right breast, continued 6-month follow-up right breast sonography needed
== END | disposition home or self-care (01) ==
LOC: CDIM 13:48
PROVIDERS: Referring Provider Nurse Practitioner Family; Visit Provider Nurse Practitioner Family
DX: N63.12 Unspecified lump in the right breast, upper inner quadrant (principal)
CPT/HCPCS: 76641